=== PATIENT | female | born 1995 | race Caucasian/White ===

== ENCOUNTER 2018-02-03 14:00 | Inpatient (IN) | payer BC ==
[~2018-02-03 14:00] MED LIST: ISOVUE-370 76%-LOCM 1 ML ONE; Iopamidol 370 76% 50 ML VIAL FS ONE
[2018-02-03 14:39] LABS: #Basophils 0.1 thou/uL (0.0-0.2); #Eosinphils 0.2 thou/uL (0.0-0.7); #Lymphocytes 0.6 thou/uL (1.20-3.40); #Monocytes 0.4 thou/uL (0.11-0.59); %Basophils 0.6 % (0.0-1.0); %Eosinophils 1.8 % (0.0-10.0); %Lymphocytes 6.1 % (21.0-51.0); %Neutrophils 87.5 % (42.0-75.0); Hemoglobin 15.3 g/dL (12.0-16.0); Mean Corpuscular HGB CONC 33.7 g/dL (32.0-36.0); Mean Corpuscular Hemoglobin 35.5 pg (27.0-31.0); Mean Platelet Volume 7.4 fL (7.4-10.4); Platelet Count 296 thou/uL (130-400); RBC Distribution Width 13.3 % (11.5-14.5); Red Blood Cell (RBC) Count 4.32 mill/uL (4.20-5.40); White Blood Cell (WBC) Count 10.3 thou/uL (4.8-10.8)
[2018-02-03 14:44] LABS: BHCG - Serum Negative (NEGATIVE); Pregs Control Background? CLEAR/WHITE (CLR/WHITE); Pregs Control Bar Appear? YES (CONTROL BAR)
[2018-02-03 14:47] LABS: PTT 26.5 SEC (22.9-36.1); Prothrombin Time 12.9 SEC (12.0-14.7)
[2018-02-03 15:01] LABS: ALT (SGPT) 10 U/L (8-55); AST (SGOT) 15 U/L (5-34); Albumin 4.2 g/dL (3.5-5.0); Alkaline Phosphatase 70 U/L (40-150); Anion Gap 13 mmol/L (10-20); BUN (Urea Nitrogen) 10 mg/dL (7.0-18.7); Bilirubin, Total 0.5 mg/dL (0.2-1.2); CK (CPK) 41 U/L (29-168); Calc. Creatinine Clearance 0 mL/min (70-130); Carbon Dioxide 26 mmol/L (22-29); Chloride 102 mmol/L (98-107); Estimated GFR-MDRD 72; Globulin 3.2 g/dL (2.4-3.5); Glucose 162 mg/dL (70-105); Lipase 132 U/L (8-78); Potassium 4.1 mmol/L (3.5-5.1); Protein, Total 7.4 g/dL (6.0-8.3); Sodium 137 mmol/L (136-145)
--- NOTE | 2018-02-03 15:12 | RAD ---
AP VIEW OF CHEST: Date: 02/03/18 INDICATION: History of rectal bleeding for 3 weeks. COMPARISON: None. FINDINGS: Lungs are clear. Cardiomediastinal silhouette is slightly accentuated by exam technique and is felt t o be within normal limits. No acute osseous abnormality is evident. IMPRESSION: No definite acute cardiopulmonary abnormality. POS: [facility]
[2018-02-03 15:54] LABS: Bilirubin Negative (Negative); Blood, Urine Negative (Negative); Clarity CLOUDY (Clear); Glucose, Urine (Dipstick) Negative (Negative); Leukocyte Moderate (Negative); Nitrite Negative (Negative); Protein, Urine (Dipstick) Negative (Neg-Trace); Specific Gravity, Urine 1.028 (1.002-1.036); Urobilinogen 0.2 mg/dL (0.2-1.0)
[2018-02-03 15:56] LABS: Bacteria/HPF 2+ HPF (None Seen); Hyaline Casts/LPF 7-10 HYALINE CAST LPF (0-3 Hyaline); Pathc Cast-AUWi Flag 0.72 (0-2.49); WBC/HPF 21-50 HPF (0-3)
[2018-02-03 16:02] LABS: RBC/HPF None Seen HPF (0-3)
[2018-02-03] MEDS ORDERED: metroNIDAZOLE 500 MG/100 ML BAG ONE (16:48)
--- NOTE | 2018-02-03 16:56 | PDOC.FPRHP ---
- History of Present Illness Chief Complaint: Abdominal pain, bloody diarrhea History of Present Illness: Ms. Arteaga reports 3 week history of blood per rectum. She has had bloody diarrhea and mucus >10 per day that has been gradually worsening. She reports decreased appetite, weakness, lower abdominal pain, cramping. She has felt lightheaded, like she would pass out, ears ringing. No fainting or LOC. She saw Dr. Barcenas, got steroids, but symptoms have She has a history of UC, diagnosed at age 18. Had colonoscopy at that time. Has another colonoscopy scheduled for 02/14. Dr. Barcenas is her GI doctor. She has not been hospitalized for a flair since she was 20 yrs old. Reports depression, off abillify for 3 weeks. Denies suicidal or homocidal ideation. ED Course: CT ab/pelvis, Flagyl, cultures - Allergies/Adverse Reactions Allergies Allergy/AdvReac Type Severity Reaction Status Date / Time No Known Allergies Allergy Verified 02/03/18 17:46 - Home Medications Medication Instructions Recorded Confirmed Type DULoxetine [Cymbalta] 30 mg PO 1700 02/03/18 02/03/18 History Dicyclomine [Bentyl] 10 mg PO QID PRN 02/03/18 02/03/18 History Mesalamine 1.2 gm PO HS 02/03/18 02/03/18 History Norgestimate-Ethinyl Estradiol 1 each PO HS 02/03/18 02/03/18 History [Trinessa Tablet] azaTHIOprine 100 mg PO HS 02/03/18 02/03/18 History valACYclovir HCl [Valacyclovir] 1,000 mg PO HS 02/03/18 02/03/18 History - History PMHx: UC, depression PSHx: None FHx: Mother-UC, fibromyalgia, ankylosing spondylitis. Aunt-ovarian CA. Dad-T1DM Social: Student at [employer]. Lives with boyfriend. Denies tobacco,alcohol, or drug use - Review of Systems General: reports: weight/appetite/sleep changes (5 lb weight loss, decreased appetite), fatigue. denies: fever/chills, night sweats Eyes: reports: vision changes (intermittent blurry vission). denies: eye pain ENT: reports: other (intermittent ringing in ears). denies: nasal congestion, rhinorrhea Respiratory: denies: cough, shortness of breath Cardiovascular: reports: palpitation (when feeling lightheaded). denies: chest pain Gastrointestinal: reports: diarrhea, abdominal pain (diffuse lower abdomen). denies: nausea, vomiting Genitourinary: denies: dysuria, polyuria Skin: denies: rashes, lesions Musculoskeletal: denies: tenderness, stiffness Neurological: denies: numbness, syncope Psychological: reports: depression. denies: anxiety - Vital signs BP: 102/65 HR: 69 RR: 15 Tmax: 97.7 Pox: 100% on RA Wt: 60 - Physical Exam Constitutional: NAD, awake, alert and oriented HEENT: normocephalic and atraumatic, EOMI, grossly normal vision, TM's clear and intact, grossly normal hearing, oropharynx clear Heart: RRR, normal S1/S2 Lungs: CTAB, no respiratory distress, no rales/rhonchi, no wheezing Abdomen: soft (bilateral lower quadrants TTP), bowel sounds present Neurological: no focal deficit Heme/Lymphatic: no unusual bruising or bleeding, no petechia Psychiatric: normal mood and affect, good judgment and insight FMR H&P: Results - Labs Result Diagrams: 02/03/18 14:27 02/03/18 14:27 Lab results: WBC 10.3 thou/uL (4.8-10.8) 02/03/18 14:27 Hgb 15.3 g/dL (12.0-16.0) 02/03/18 14:27 Hct 45.4 % (36.0-47.0) 02/03/18 14:27 MCV 105.0 fL (78.0-98.0) H 02/03/18 14:27 Plt Count 296 thou/uL (130-400) 02/03/18 14:27 Neutrophils % 87.5 % (42.0-75.0) H 02/03/18 14:27 Sodium 137 mmol/L (136-145) 02/03/18 14:27 Potassium 4.1 mmol/L (3.5-5.1) 02/03/18 14:27 Chloride 102 mmol/L (98-107) 02/03/18 14:27 Carbon Dioxide 26 mmol/L (22-29) 02/03/18 14:27 BUN 10 mg/dL (7.0-18.7) 02/03/18 14:27 Creatinine 0.96 mg/dL (0.6-1.1) 02/03/18 14:27 Glucose 162 mg/dL (70-105) H 02/03/18 14:27 Lactic Acid 1.2 mmol/L (0.5-2.2) 02/03/18 14:27 Calcium 10.0 mg/dL (7.8-10.44) 02/03/18 14:27 Total Bilirubin 0.5 mg/dL (0.2-1.2) 02/03/18 14:27 AST 15 U/L (5-34) 02/03/18 14:27 ALT 10 U/L (8-55) 02/03/18 14:27 Alkaline Phosphatase 70 U/L (40-150) 02/03/18 14:27 Creatine Kinase 41 U/L (29-168) 02/03/18 14:27 B-Natriuretic Peptide Less than 10.0 pg/mL (0-100) 02/03/18 14:27 Serum Total Protein 7.4 g/dL (6.0-8.3) 02/03/18 14:27 Albumin 4.2 g/dL (3.5-5.0) 02/03/18 14:27 Lipase 132 U/L (8-78) H 02/03/18 14:27 Urine Ketones Trace mg/dL (Negative) H 02/03/18 15:26 Urine Blood Negative (Negative) 02/03/18 15:26 Urine Nitrite Negative (Negative) 02/03/18 15:26 Ur Leukocyte Esterase Moderate (Negative) H 02/03/18 15:26 Urine RBC None Seen HPF (0-3) 02/03/18 15:26 Urine WBC 21-50 HPF (0-3) H 02/03/18 15:26 Ur Squamous Epith Cells 4-6 HPF (0-3) H 02/03/18 15:26 Urine Bacteria 2+ HPF (None Seen) H 02/03/18 15:26 FMR H&P: A/P - Problem List (1) Ulcerative colitis Current Visit: Yes Status: Acute Code(s): K51.90 - ULCERATIVE COLITIS, UNSPECIFIED, WITHOUT COMPLICATIONS (2) Pre-syncope Current Visit: Yes Status: Acute (3) Depression Current Visit: Yes Status: Acute Code(s): F32.9 - MAJOR DEPRESSIVE DISORDER , SINGLE EPISODE, UNSPECIFIED - Plan Acute UC flare -considering stable vitals, normal white count there is no current concern for infection -Prednisone 40 mg daily -pending ESR, CRP -continue home medications -soft diet, advance as patient tolerates -IV fluids NS @ 100 -pending CT ab/pelvis -Appreciate GI recs, Dr. Peres Pre-syncope, likely vasovagal -considering normal labs and vitals, vasovagal more likely than orthostatic/ hypovolemic cause Depression -continue home meds Ppx: SCDs, no GI ppx indicated FMR H&P: Upper Level - Pertinent history Patient is a 23 year old female who presents to the ED with 2-3 week history of bright red blood per rectum and increased frequency of bowel movements. Pt reports at least 10 small volume bowel movements per day and reports blood and mucus. She was started on Uceris one week ago by her GI's office ([facility]), but states that her symptoms did not improvem. Her regimen for UC includes Lialda, Azathioprine, and Uceris. She reports chills, weakness, fatigue, abdominal pain/ cramping, tenesmus, and symptoms of near syncope that occur when having a bowel movement. She was diagnosed with UC at the age of 18 and was hospitalized at that time due to severe rectal bleeding. Her last colonoscopy was around that time. She has been hospitalized multiple times for UC flares. - Pertinent findings Hgb: 15.3, Hct: 45.4 WBC: 10.3 Plt: 296. MCV: 105 FOBT: negative Stool studies (01/27) fecal lactoferrin - elevated C diff antigen/toxin - negative. PTT: 26.5 PT: 12.9 INR: 1.0 - Plan Date/Time: 02/03/18 1654 ISue, have evaluated this patient and agree with findings/plan as outlined by management retail intern resident. Pertinent changes/additions are listed here. 1. Acute Ulcerative Colitis Exacerbation - pt's symptoms unlikely related to infectious etiology. - pt's case discussed with Dr. Peres who recommends admission to medical observation. - will continue pt's home medications - Will add home PO steroids - IV fluids. - GI recs. 2. Depression - continue Cymbalta Proph: SCDs GI proph: omeprazole Attending Addendum - Attending Addendum Date/Time: 02/03/18 740 I personally evaluated the patient and discussed the management with Dr. Barkley and Dr. Quijano I agree with the History, Examination, Assessment and Plan documented above with any addition or exceptions noted below. 23 yo female with UC presents for acute flare. Last flare at age 20. Has been for the most part controlled on current regiment. Has routine follow up with GI Dr. Barcenas. Episode of presyncope earlier today. Has since resolved. No significant findings on exam. Will continue IVF hydration and monitor cardiac function on tele. Will start oral steroid taper. GI to follow. Will advance diet as tolerated. Possible home tomorrow if doing well. Larry
[2018-02-03] MEDS ORDERED: metroNIDAZOLE 500 MG in Premix Bag 1 BAG IVPB SCH (17:00)
[2018-02-03] MEDS ORDERED: predniSONE 20 MG TAB PO SCH (17:15)
--- NOTE | 2018-02-03 17:35 | CT ---
CT OF ABDOMEN AND PELVIS: Date: 02-03-18 Comparison: None. History: Three week history of rectal bleeding. Pain. Technique: Serial axial CT imaging at 5 mm intervals from lung bases through pubic symphysis with IV and oral contrast. Coronal reformatted imaging obtained. FINDINGS: The visualized lung bases are unremarkable. No free intraperitoneal air noted. There is a tiny hypodensity within the superior anterior aspect of the left lobe of the liver on imag e 10 measuring 6-7 mm, too small to characterize. The gallbladder, spleen, pancreas, adrenal glands, and kidneys appear grossly unremarkable. There is colonic wall thickening extending from the level of the rectum through the level of the sigm oid colon at the junction of the descending colon with mild pericolonic fat stranding, evidence of no nspecific colitis, consistent with the patient's provided history of ulcerative colitis. There is a small area of hypodensity in the adnexa on the left which may represent a subcentimeter ov stan cyst/dominant follicle. No CT evidence for bowel obstruction or abscess. The vascular structures of the abdomen/pelvis appear patent. No lymphadenopathy is seen within the ab domen or pelvis. Osseous structures demonstrate no worrisome lytic or blastic lesion. IMPRESSION: 1. There is wall thickening and pericolonic fat stranding involving the colon from the level of the j unction of the descending colon and sigmoid colon through the level of the rectum, evidence of nonspe cific colitis. No evidence for bowel obstruction, free intraperitoneal air, or abscess. POS: [facility]
[2018-02-03 18:06] VITALS: BMI 20.7
[2018-02-03] MEDS: Sodium Chloride 0.9% 1,000 ML IV SCH (18:42)
[2018-02-03] MEDS: Dicyclomine 10 MG CAP PO PRN (18:43)
[2018-02-03] MEDS: azaTHIOprine 50 MG TAB PO SCH (20:36)
[2018-02-03] MEDS: valACYclovir 500 MG TAB PO SCH (20:37)
[2018-02-03] MEDS ORDERED: Mesalamine DR 400 mg Capsule PO SCH (21:00)
--- NOTE | 2018-02-04 02:44 | CON ---
DATE OF CONSULTATION: 02/03/2018 REASON FOR CONSULTATION: Ulcerative colitis flare. HISTORY OF PRESENT ILLNESS: Ms. Arteaga is a pleasant 23-year-old her significant other with her in t he room. She was admitted via emergency room. She has got together by our office for worsening diar frances up to 10-20 times per day with mucus and blood and severe lower abdominal cramping. She has not been responding to outpatient trial of Uceris over the weekend. She has been brought in for admissi on. In talking with her, she began flaring about 2 weeks ago. She thinks this may have been around that time she started medicine Abilify for depression. She has been on no recent antibiotics. She h ad no sick contacts. In the office about 2 weeks ago, she was seen and she had labs with normal CBC except for MCV of 107, sed rate of 2, normal comp metabolic profile, CRP less than 0.5. She had stoo l studies at that time were positive for elevated lactoferrin, negative for Clostridium difficile. S he was started on Uceris on the 3rd of this month and was failed for outpatient endoscopies as she wa s having mainly tenesmus and mucus and just a little bit of blood and at that time, her inflammatory markers were elevated. It was thought that maybe some of this was IBS or functional. However, with worsening of symptoms and the patient with some blood in the stool and 20 bowel movements a day, the decision was made to admit her for further evaluation as she was fairly admitted to the outpatient [facility]. PAST MEDICAL HISTORY: 1. Ulcerative colitis diagnosed in 2013 and this seems like it was pancolitis. She has been in [facility] for the past year and a half, she has been seeing Dr. Barcenas with Imuran, some azathioprine 100 m g a day and Lialda 2 pills daily. 2. She has history of genital herpes, for which she takes valacyclovir 1000 mg daily. 3. She takes control pills. 4. Depression, for which she was on Abilify, but now is on Cymbalta. PAST SURGICAL HISTORY: Unknown. ALLERGIES: None known. FAMILY HISTORY: Positive for inflammatory bowel disease with ulcerative colitis ____. REVIEW OF SYSTEMS: Negative for rashes, myalgias, arthralgias. Negative for oral ulcerations. Nega tive for shortness breath, chest pain, dyspnea on exertion, hematuria, frequency, or urgency. PHYSICAL EXAMINATION: VITAL SIGNS: In the emergency room, stable. Temperature 98, pulse 87, blood pressure 120s/70s. GENERAL: She is a well-nourished, well-developed. She is in no distress. She has no oral ulcer. S he has got a piercing in her left lower lip. SKIN: Without rash or lesions. ABDOMEN: Soft with left lower quadrant tenderness. No rebound. Voluntary guarding is present. [place] el sounds are positive. EXTREMITIES: No clubbing, cyanosis or edema. SKIN: Without rash or lesions. LABORATORY DATA: Today electrolytes are normal with BUN and creatinine of 10 and 0.96. Liver functi on tests normal. Lipase is 132. test is negative. B12 and folate, recently 404 and 11. BNP was less than 10. C-reactive protein is 4.45, it was less than 0.5 on 01/21/2018. On 01/21/2018 , Imuran levels were in therapeutic range, on low normal side. Urinalysis, moderate leukocyte estera se, 21-50 white blood cells, 4-6 squamous, this is likely contaminant. Hematology, ESR is 11 up from 2 on the , white count is 10.6, hemoglobin 15.3, platelet count 296. ASSESSMENT: Ulcerative colitis flare. RECOMMENDATIONS: 1. Solu-Medrol 100 mg IV q.8 hours 2. Continue home medications. We will increase mesalamine to 4.8 grams. We will check stool again for C. diff, routine cultures ____ recently. If she does not improve, we need to recheck of her CMV.
[2018-02-04] MEDS: Dicyclomine 10 MG CAP PO PRN ×3 (04:43→19:14)
[2018-02-04] MEDS: Sodium Chloride 0.9% 1,000 ML IV SCH (04:43)
[2018-02-04 05:08] LABS: #Lymphocytes 0.3 thou/uL (1.20-3.40); #Monocytes 0.4 thou/uL (0.11-0.59); #Neutrophils 10.5 thou/uL (1.40-6.50); %Basophils 0.3 % (0.0-1.0); %Eosinophils 0.1 % (0.0-10.0); %Lymphocytes 2.3 % (21.0-51.0); %Monocytes 3.2 % (0.0-10.0); %Neutrophils 94.1 % (42.0-75.0); Hemoglobin 13.3 g/dL (12.0-16.0); Mean Corpuscular HGB CONC 32.5 g/dL (32.0-36.0); Mean Corpuscular Hemoglobin 34.2 pg (27.0-31.0); Mean Platelet Volume 7.6 fL (7.4-10.4); Platelet Count 292 thou/uL (130-400); RBC Distribution Width 13.2 % (11.5-14.5); Red Blood Cell (RBC) Count 3.89 mill/uL (4.20-5.40); White Blood Cell (WBC) Count 11.1 thou/uL (4.8-10.8)
--- NOTE | 2018-02-04 05:13 | PDOC.FM ---
- Subjective Subjective: Ms. Arteaga says she feels maybe a little bit better this morning. 3-4 BMs overnight. Reports straining while using the bathroom. Tolerated some soft food yesterday evening. Reports pain is still 6/10 and Bentyl is only helping a little. - Objective MAR Reviewed: Yes Vital Signs & Weight: Vital Signs (12 hours) Temp Pulse Resp BP BP Pulse Ox 02/04/18 04:43 74 18 114/54 L 02/03/18 23:05 98.4 F 75 16 106/56 L 97 02/03/18 19:27 98.3 F 80 15 111/64 96 02/03/18 17:37 97.7 F 69 15 102/65 100 Weight Weight 60.101 kg I&O: 02/02/18 02/03/18 02/04/18 06:59 06:59 06:59 Intake Total 1000 Balance 1000 Result Diagrams: 02/04/18 04:10 02/04/18 04:10 <Marah oMncada - Last Filed: 02/04/18 08:22> - Objective Vital Signs & Weight: Vital Signs (12 hours) Temp Pulse Resp BP BP Pulse Ox 02/04/18 11:13 98.5 F 64 15 104/64 98 02/04/18 08:00 98.4 F 56 L 14 02/04/18 07:22 98.4 F 56 L 14 106/59 L 97 02/04/18 04:43 74 18 114/54 L Weight Weight 60.101 kg I&O: 02/03/18 02/04/18 02/05/18 06:59 06:59 06:59 Intake Total 1000 120 Balance 1000 120 Result Diagrams: 02/04/18 04:10 02/04/18 04:10 <Mandeep Smiley - Last Filed: 02/04/18 12:06> Phys Exam - Physical Examination Constitutional: NAD HEENT: moist MMs Respiratory: no wheezing, no rales, no rhonchi, clear to auscultation bilateral Cardiovascular: RRR, no significant murmur Gastrointestinal: soft, no distention (bilateral lower abdomen TTP), positive bowel sounds Musculoskeletal: no edema, pulses present Neurological: non-focal, moves all 4 limbs Psychiatric: normal affect Skin: no rash, cap refill <2 seconds <Marah Moncada - Last Filed: 02/04/18 08:22> Dx/Plan (1) Ulcerative colitis Code(s): K51.90 - ULCERATIVE COLITIS, UNSPECIFIED, WITHOUT COMPLICATIONS Status: Acute (2) Pre-syncope Status: Acute (3) Depression Code(s): F32.9 - MAJOR DEPRESSIVE DISORDER, SINGLE EPISODE, UNSPECIFIED Status : Acute (4) Genital herpes Code(s): A60.00 - HERPESVIRAL INFECTION OF UROGENITAL SYSTEM, UNSPECIFIED Status: Chronic - Plan Plan: Acute UC flare -considering stable vitals, normal white count there is no current concern for infection - CT ab/pelvis showed colonic wall thickening, pericolonic fat stranding, nonspecific colitis. -ESR and CRP elevated compared to lab 01/22/18 -neg FOBT, neg O&P, campy, shiga screen -continue home azathioprine, lialda -soft diet, advance as patient tolerates -IV fluids NS @ 100 -Appreciate GI recs, Dr. Peres: increase mesalamine to 4.8mg -solumedrol 100IV q8h, -c diff, stool culture and cyclospora smear pending Pre-syncope, likely vasovagal -considering normal labs and vitals, vasovagal more likely than orthostatic/ hypovolemic cause Genital Herpes -continue home valacyclovir Depression -continue home meds Ppx: SCDs, no GI ppx indicated Disposition: Stable, awaiting recommendations from GI. Possible discharge later today if continued improvement <Marah Moncada - Last Filed: 02/04/18 08:22> Attending Addendum - Attending Addendum Date/Time: 02/04/18 1205 I personally evaluated the patient and discussed the management with Dr. Moncada. I agree with the History, Examination, Assessment and Plan documented above with any addition or exceptions noted below. Patient here for UC flare. Continues to have bowel movements and tenesmus. Working on increasing her Lialda dose but pharmacy does not have proper formulation so are working to get home meds approved for use here. Continue IV steroids per GI recs. <Mandeep Smiley - Last Filed: 02/04/18 12:06>
[2018-02-04 05:32] LABS: Anion Gap 12 mmol/L (10-20); BUN (Urea Nitrogen) 7 mg/dL (7.0-18.7); Calc. Creatinine Clearance 109 mL/min (70-130); Carbon Dioxide 23 mmol/L (22-29); Chloride 108 mmol/L (98-107); Estimated GFR-MDRD Greater than 90; Glucose 165 mg/dL (70-105); Potassium 4.3 mmol/L (3.5-5.1); Sodium 139 mmol/L (136-145)
[2018-02-04] MEDS ORDERED: predniSONE 20 MG TAB PO SCH (08:00)
[2018-02-04] MEDS ORDERED: azaTHIOprine 50 MG TAB PO SCH (09:00)
[2018-02-04] MEDS ORDERED: valACYclovir 500 MG TAB PO SCH (09:00)
[2018-02-04] MEDS ORDERED: Mesalamine DR 400 mg Capsule PO SCH (09:00)
[2018-02-04] MEDS ORDERED: DULoxetine 30 MG CAP PO SCH (09:00)
[2018-02-04] MEDS: methylPREDNISolone Sod Succ/PF 125 MG/2 ML VIAL IVP SCH ×2 (10:39→17:45)
[2018-02-04] MEDS ORDERED: Lactated Ringer's 1,000 ML IV SCH (12:00)
[2018-02-04] MEDS: NORGESTIMATE ETHINYL ESTRADIOL PO SCH ×2 (13:37→15:16)
[2018-02-04] MEDS: DULoxetine 30 MG CAP PO SCH (17:41)
[2018-02-04] MEDS: azaTHIOprine 50 MG TAB PO SCH (19:14)
[2018-02-04] MEDS: valACYclovir 500 MG TAB PO SCH (19:14)
[2018-02-04] MEDS ORDERED: Acetaminophen 325 MG TAB PO PRN (22:58)
[2018-02-05] MEDS: methylPREDNISolone Sod Succ/PF 125 MG/2 ML VIAL IVP SCH ×3 (01:39→17:24)
--- NOTE | 2018-02-05 05:46 | PRG ---
DATE OF SERVICE: 02/04/2018 SUBJECTIVE: Ms. Arteaga has had decreased in bowel movements, noted about 7 to 8 a day. She is still seeing some blood and having some tenesmus. PHYSICAL EXAMINATION: VITAL SIGNS: Temperature is 98.6, pulse 61, blood pressure 119/69. HEENT: Oropharynx without lesions. NECK: There is no thrush. LUNGS: Clear. HEART: Regular rate and rhythm without clicks or murmurs. ABDOMEN: ditch tender in left lower quadrant, but there is less voluntary guarding and no rebound. LABORATORY STUDIES: White count is 11.1, hemoglobin is 13.3, platelet count 292. Sodium 139, potass ium 4.3, BUN and creatinine are 7 and 0.76. CRP was 454 yesterday. Stool microbiology negative for C. difficile, negative for rapid ova and parasite screen. Cyclosporine has been ordered and is pendi ng. Stool culture showed no Gram-negative and normal enteric payton. RECOMMENDATIONS: 1. Probiotics. 2. Continue IV steroids. 3. I think the patient will need to be will probably need another 24-48 hours of IV steroids. Her typical hospital stay, she notes is anywhere between 5 and 10 days.
--- NOTE | 2018-02-05 05:57 | PDOC.FM ---
- Subjective Subjective: Patient used the bathroom 3-4x overnight. Diffuse lower abdominal pain continues. Tolerating PO intake well but says she is not drinking as much as she knows she should. She reports pain and burning with urination. Patient has concern for UTI as her "bladder feels sore". Has had UTIs in past, last one 1 yr ago. Also has history of yeast infections and reports itching with urination as well. - Objective MAR Reviewed: Yes Vital Signs & Weight: Vital Signs (12 hours) Temp Pulse Resp BP Pulse Ox 02/05/18 05:00 97.9 F 64 16 113/57 L 97 02/04/18 23:45 98.3 F 66 18 121/67 97 02/04/18 20:00 98.6 F 61 16 02/04/18 19:11 98.6 F 61 16 119/68 98 Weight Weight 60.101 kg I&O: 02/03/18 02/04/18 02/05/18 06:59 06:59 06:59 Intake Total 1000 2195 Balance 1000 2195 Result Diagrams: 02/04/18 04:10 02/04/18 04:10 <Marah Moncada - Last Filed: 02/05/18 09:26> - Objective Vital Signs & Weight: Vital Signs (12 hours) Temp Pulse Resp BP Pulse Ox 02/05/18 11:28 97.6 F 55 L 20 99/56 L 02/05/18 07:47 97.9 F 57 L 20 113/59 L 02/05/18 07:40 97.9 F 57 L 20 02/05/18 05:00 97.9 F 64 16 113/57 L 97 Weight Weight 60.101 kg I&O: 02/04/18 02/05/18 02/06/18 06:59 06:59 06:59 Intake Total 1000 2195 Balance 1000 2195 Result Diagrams: 02/04/18 04:10 02/04/18 04:10 <Mandeep Smiley - Last Filed: 02/05/18 13:32> Phys Exam - Physical Examination Constitutional: NAD Respiratory: clear to auscultation bilateral Cardiovascular: RRR, no significant murmur Gastrointestinal: soft, positive bowel sounds bilateral lower quadrants TTP Musculoskeletal: no edema, pulses present Neurological: non-focal, moves all 4 limbs Psychiatric: normal affect, A&O x 3 <Marah Moncada - Last Filed: 02/05/18 09:26> Dx/Plan (1) Ulcerative colitis Code(s): K51.90 - ULCERATIVE COLITIS, UNSPECIFIED, WITHOUT COMPLICATIONS Status: Acute (2) Pre-syncope Status: Acute (3) Depression Code(s): F32.9 - MAJOR DEPRESSIVE DISORDER, SINGLE EPISODE, UNSPECIFIED Status : Acute (4) Genital herpes Code(s): A60.00 - HERPESVIRAL INFECTION OF UROGENITAL SYSTEM, UNSPECIFIED Status: Chronic - Plan Plan: Acute UC flare - CT ab/pelvis showed colonic wall thickening, pericolonic fat stranding, nonspecific colitis. -ESR and CRP elevated compared to lab 01/22/18 -neg FOBT, neg O&P, campy, shiga screen. neg stool culture. neg c diff. -continue home azathioprine, lialda -soft diet, advance as patient tolerates -Appreciate GI recs, Dr. Peres: recommends probiotics, continuing IV steroids. -solumedrol 100IV q8h -cyclospora smear pending Pre-syncope, likely vasovagal -considering normal labs and vitals, vasovagal more likely than orthostatic/ hypovolemic cause Genital Herpes -continue home valacyclovir Depression -continue home meds Ppx: SCDs, no GI ppx indicated Disposition: Stable, discharge 24-48 hrs pending GI recommendations. <Marah Moncada - Last Filed: 02/05/18 09:26> Attending Addendum - Attending Addendum Date/Time: 02/05/18 1331 I personally evaluated the patient and discussed the management with Dr. Moncada. I agree with the History, Examination, Assessment and Plan documented above with any addition or exceptions noted below. Patient reports feeling the same. GI has recommended a few more days of IV steroids. She is having what sounds like vaginitis for which we will work up and treat as necessary. Continue current mgmt. <Mandeep Smiley - Last Filed: 02/05/18 13:32>
[2018-02-05] MEDS: Saccharomyces boulardii 250 MG CAP PO SCH (08:42)
[2018-02-05] MEDS: NORGESTIMATE ETHINYL ESTRADIOL PO SCH (08:43)
[2018-02-05] MEDS: MESALAMINE 1.2 GM PO SCH (08:44)
[2018-02-05] MEDS ORDERED: MESALAMINE 1.2 GM PO SCH (09:00)
[2018-02-05] MEDS: DULoxetine 30 MG CAP PO SCH (17:24)
[2018-02-05] MEDS ORDERED: Fluconazole 100 MG TAB PO SCH (19:00)
[2018-02-05] MEDS: azaTHIOprine 50 MG TAB PO SCH (21:47)
[2018-02-05] MEDS: valACYclovir 500 MG TAB PO SCH (21:49)
[2018-02-06] MEDS ORDERED: Sodium Chloride 0.9% 10 ML ONE (01:13)
[2018-02-06] MEDS: methylPREDNISolone Sod Succ/PF 125 MG/2 ML VIAL IVP SCH ×3 (01:28→17:51)
--- NOTE | 2018-02-06 03:04 | PRG ---
DATE OF SERVICE: 02/05/2018 SUBJECTIVE: Ms. Arteaga states she has felt better in terms of her bowels. She is having less bleedi ng, about 6 bowel movements today, which is down from 8-10 yesterday. She is having less cramping. She has had some dysuria and vaginal burning. She denies any dysphagia or odynophagia, but does note she had thrush when she had severe Clostridium difficile in one previous admission with her ulcerati ve colitis. OBJECTIVE: VITAL SIGNS: Temperature is 98, pulse 58, blood pressure 107/61. ABDOMEN: Soft, nontender. LUNGS: Clear. HEART: Regular rate and rhythm without clicks or murmurs. ABDOMEN: stave machine tender mildly in left lower quadrant. LABORATORY DATA: No labs today. ASSESSMENT: 1. Ulcerative colitis, [id number] flare, on IV steroids now. 2. Symptoms suggested urinary tract infection versus Mariely vaginitis. She denies any discharge. RECOMMENDATIONS: 1. Continue IV steroids. 2. Continue low-residue diet. 3. Check a UA and culture. 4. Give her 1 dose of Diflucan empirically.
--- NOTE | 2018-02-06 05:19 | PDOC.FM ---
- Subjective Subjective: Ms. Arteaga feels she is slowly starting to improve. Went to bathroom 3x last night. Diffuse lower abdominal pain is improving. Has not urinated since received diflucan yesterday. Says she is unsure if dysuria, vaginal irritation is persistent today. - Objective MAR Reviewed: Yes Vital Signs & Weight: Vital Signs (12 hours) Temp Pulse Resp BP Pulse Ox 02/05/18 20:15 98.6 F 72 18 123/68 99 02/05/18 17:43 98.3 F 58 L 20 107/61 Weight Weight 60.101 kg I&O: 02/04/18 02/05/18 02/06/18 06:59 06:59 06:59 Intake Total 1000 2195 1000 Balance 1000 2195 1000 Result Diagrams: 02/04/18 04:10 02/04/18 04:10 <Marah Moncada - Last Filed: 02/06/18 08:02> - Objective Vital Signs & Weight: Vital Signs (12 hours) Temp Pulse Resp BP Pulse Ox 02/06/18 08:37 98.8 F 49 L 18 102/57 L 98 02/06/18 08:15 98.6 F 72 20 Weight Weight 60.101 kg I&O: 02/05/18 02/06/18 02/07/18 06:59 06:59 06:59 Intake Total 2195 1000 Balance 2195 1000 Result Diagrams: 02/04/18 04:10 02/04/18 04:10 <Mandeep Smiley - Last Filed: 02/06/18 11:49> Phys Exam - Physical Examination Constitutional: NAD Respiratory: clear to auscultation bilateral Cardiovascular: RRR, no significant murmur Gastrointestinal: soft, positive bowel sounds bilateral lower quadrants mildly TTP Musculoskeletal: no edema Neurological: non-focal Psychiatric: normal affect <Marah Moncada - Last Filed: 02/06/18 08:02> Dx/Plan (1) Ulcerative colitis Code(s): K51.90 - ULCERATIVE COLITIS, UNSPECIFIED, WITHOUT COMPLICATIONS Status: Acute (2) Pre-syncope Status: Acute (3) Depression Code(s): F32.9 - MAJOR DEPRESSIVE DISORDER, SINGLE EPISODE, UNSPECIFIED Status : Acute (4) Genital herpes Code(s): A60.00 - HERPESVIRAL INFECTION OF UROGENITAL SYSTEM, UNSPECIFIED Status: Chronic - Plan Plan: Acute UC flare - CT ab/pelvis showed colonic wall thickening, pericolonic fat stranding, nonspecific colitis. -ESR and CRP elevated compared to lab 01/22/18 -neg FOBT, neg O&P, campy, shiga screen. neg stool culture. neg c diff. -continue home azathioprine, lialda -soft diet, advance as patient tolerates -Appreciate GI recs, Dr. Peres: recommends continuing IV steroids. -solumedrol 100IV q8h -cyclospora smear pending Dysuria/vaginal irritation -Unsure of etiology considering Ucx on admission negative for growth and negative VP3. Ddx includes UTI, yeast infection considering steroid exposure. -VP3 negative -pending Ucx -given 1 dose diflucan. Scheduled diflucan daily. Pre-syncope, likely vasovagal -considering normal labs and vitals, vasovagal more likely than orthostatic/ hypovolemic cause Genital Herpes -continue home valacyclovir Depression -continue home meds <Marah Moncada - Last Filed: 02/06/18 08:02> Attending Addendum - Attending Addendum Date/Time: 02/06/18 [id number] I personally evaluated the patient and discussed the management with Dr. Moncada. I agree with the History, Examination, Assessment and Plan documented above with any addition or exceptions noted below. Patient reports some improvement today. Will continue IV steroids for her UC flare per GI recs. VP3 negative, but GI treating for possible thrush. Anticipate hopeful discharge in next 1-2 days if progressing well. <Mandeep Smiley - Last Filed: 02/06/18 11:49>
[2018-02-06] MEDS ORDERED: Fluconazole 100 MG TAB PO SCH (09:00)
[2018-02-06] MEDS: Saccharomyces boulardii 250 MG CAP PO SCH (10:01)
[2018-02-06] MEDS: NORGESTIMATE ETHINYL ESTRADIOL PO SCH (10:01)
[2018-02-06] MEDS: MESALAMINE 1.2 GM PO SCH (10:03)
[2018-02-06 15:21] LABS: Bilirubin Negative (Negative); Blood, Urine Negative (Negative); Clarity CLEAR (Clear); Glucose, Urine (Dipstick) Negative (Negative); Leukocyte Negative (Negative); Nitrite Negative (Negative); Protein, Urine (Dipstick) Trace mg/dL (Neg-Trace); Specific Gravity, Urine 1.035 (1.002-1.036); Urobilinogen 0.2 mg/dL (0.2-1.0)
[2018-02-06 15:24] LABS: Pathc Cast-AUWi Flag 1.16 (0-2.49); RBC/HPF 0-3 HPF (0-3)
[2018-02-06 15:41] LABS: Hyaline Casts/LPF 0-3 HYALINE CAST LPF (0-3 Hyaline)
[2018-02-06 15:42] LABS: Bacteria/HPF 1+ HPF (None Seen)
[2018-02-06] MEDS: DULoxetine 30 MG CAP PO SCH (17:51)
[2018-02-06] MEDS: valACYclovir 500 MG TAB PO SCH (21:36)
[2018-02-06] MEDS: azaTHIOprine 50 MG TAB PO SCH (21:40)
[2018-02-06] MEDS: Mesalamine DR 400 mg Capsule PO SCH (21:45)
[2018-02-07] MEDS ORDERED: Sterile Water 10 ML ONE (01:32)
--- NOTE | 2018-02-07 05:31 | PRG ---
DATE OF SERVICE: 02/06/2018 SUBJECTIVE: Ms. Arteaga states she is having about 5-7 stools per day. There is less blood, it is a little more formed, she is still having some cramps. She is taking some Bentyl, she has from h ome. MEDICATIONS: She is taking her Trinessa from home, Tylenol, Imuran 100 mg daily, dicyclomine 10 mg q .i.d. p.r.n., Cymbalta 30 mg daily, mesalamine 1.2 grams daily, Solu-Medrol, Florastor, Valtrex, meth ylprednisone has increased to 100 IV q.8 hours. OBJECTIVE: VITAL SIGNS: By residence temperature is 99, pulse 59, blood pressure 107/62. ABDOMEN: Soft, nontender. There is no rebound. There is no guarding. LABORATORY STUDIES: None. MICROBIOLOGY: Urine showed 4-6 white blood cells, squames, and 1+ bacteria. ASSESSMENT: Ulcerative colitis, I would recommend dropping the Solu-Medrol down to most 40 IV q.8 __ ___ she is going to get Mariely from it. There are no studies to indicate that massive doses of Solu -Medrol improve ulcerative colitis any faster than 20-40 mg IV q.8 hours. PLAN: 1. I stopped the Diflucan. She had 2 doses. She does not feel like she has a yeast infection anymo re, feels like it is improving. 2. We will increase Lialda 4.8 grams a day. 3. I suspect the patient will require 1-2 more days of hospitalization.
[2018-02-07 06:04] LABS: #Lymphocytes 0.6 thou/uL (1.20-3.40); #Monocytes 0.5 thou/uL (0.11-0.59); #Neutrophils 11.5 thou/uL (1.40-6.50); %Eosinophils 0.1 % (0.0-10.0); %Lymphocytes 4.5 % (21.0-51.0); %Monocytes 3.9 % (0.0-10.0); %Neutrophils 91.6 % (42.0-75.0); Hemoglobin 13.4 g/dL (12.0-16.0); Mean Corpuscular HGB CONC 34.1 g/dL (32.0-36.0); Mean Corpuscular Hemoglobin 35.5 pg (27.0-31.0); Mean Platelet Volume 7.6 fL (7.4-10.4); Platelet Count 307 thou/uL (130-400); RBC Distribution Width 12.9 % (11.5-14.5); Red Blood Cell (RBC) Count 3.78 mill/uL (4.20-5.40); White Blood Cell (WBC) Count 12.6 thou/uL (4.8-10.8)
[2018-02-07 06:13] LABS: Anion Gap 11 mmol/L (10-20); BUN (Urea Nitrogen) 14 mg/dL (7.0-18.7); Calc. Creatinine Clearance 126 mL/min (70-130); Calcium 9.2 mg/dL (7.8-10.44); Carbon Dioxide 29 mmol/L (22-29); Chloride 103 mmol/L (98-107); Estimated GFR-MDRD Greater than 90; Glucose 147 mg/dL (70-105); Sodium 139 mmol/L (136-145)
--- NOTE | 2018-02-07 08:02 | PDOC.FM ---
- Subjective Subjective: Patient says she is feeling a bit better, pain is decreased. Went to bathroom 3- 4x last night. Reports blood amount is decreasing. Says dysuria has improved. Doesn't feel like she has yeast infection. - Objective MAR Reviewed: Yes Vital Signs & Weight: Weight Weight 60.101 kg I&O: 02/06/18 02/07/18 02/08/18 06:59 06:59 06:59 Intake Total 1000 Balance 1000 Result Diagrams: 02/07/18 05:43 02/07/18 05:43 <Marah Moncada - Last Filed: 02/07/18 08:07> - Objective Vital Signs & Weight: Vital Signs (12 hours) Temp Pulse Resp BP Pulse Ox 02/07/18 11:58 98.2 F 51 L 18 99/61 02/07/18 08:12 98.7 F 50 L 16 111/73 96 Weight Weight 60.101 kg I&O: 02/06/18 02/07/18 02/08/18 06:59 06:59 06:59 Intake Total 1000 Balance 1000 Result Diagrams: 02/07/18 05:43 02/07/18 05:43 <Mandeep Smiley - Last Filed: 02/07/18 14:13> Phys Exam - Physical Examination Constitutional: NAD Respiratory: clear to auscultation bilateral Cardiovascular: RRR, no significant murmur Gastrointestinal: soft, positive bowel sounds lower quadrants mildly TTP Neurological: non-focal, moves all 4 limbs Psychiatric: normal affect <Marah Moncada - Last Filed: 02/07/18 08:07> Dx/Plan (1) Ulcerative colitis Code(s): K51.90 - ULCERATIVE COLITIS, UNSPECIFIED, WITHOUT COMPLICATIONS Status: Acute (2) Pre-syncope Status: Acute (3) Depression Code(s): F32.9 - MAJOR DEPRESSIVE DISORDER, SINGLE EPISODE, UNSPECIFIED Status : Acute (4) Genital herpes Code(s): A60.00 - HERPESVIRAL INFECTION OF UROGENITAL SYSTEM, UNSPECIFIED Status: Chronic - Plan Plan: Acute UC flare - CT ab/pelvis showed colonic wall thickening, pericolonic fat stranding, nonspecific colitis. -CRP trending down. 4.5->1.2 -neg FOBT, neg O&P, campy, shiga screen. neg stool culture. neg c diff. -continue azathioprine, lialda (dose increased, 4.8g/day), probiotics -soft diet, advance as patient tolerates -Appreciate GI recs, Dr. Peres: recommends continuing IV steroids. Increased Lialda dose. 1-2 more days. -solumedrol, now decreased to 40mg dose -cyclospora smear pending Dysuria/vaginal irritation, resolved -VP3 negative -Ucx no growth @ 12 hrs -given 2 doses diflucan. discontinued. Pre-syncope, resolved -considering normal labs and vitals, vasovagal more likely than orthostatic/ hypovolemic cause Genital Herpes -continue home valacyclovir Depression -continue home meds <Marah Moncada - Last Filed: 02/07/18 08:07> Attending Addendum - Attending Addendum Date/Time: 02/07/18 9366 I personally evaluated the patient and discussed the management with Dr. Moncada. I agree with the History, Examination, Assessment and Plan documented above with any addition or exceptions noted below. Continue IV steroids, though dose has been decreased. We have increased her Lialda dose per GI recs. Feeling somewhat better. Anticipate discharge in next 1 -2 days as tolerating diet well. <Mandeep Smiley - Last Filed: 02/07/18 14:13>
[2018-02-07] MEDS: Mesalamine DR 400 mg Capsule PO SCH ×3 (08:43→21:59)
[2018-02-07] MEDS: NORGESTIMATE ETHINYL ESTRADIOL PO SCH (08:43)
[2018-02-07] MEDS: Saccharomyces boulardii 250 MG CAP PO SCH (08:44)
[2018-02-07] MEDS: MESALAMINE 1.2 GM PO SCH (09:30)
--- NOTE | 2018-02-07 15:52 | PRG ---
DATE OF SERVICE: 02/07/2018 SUBJECTIVE: Ms. Arteaga is feeling a little better today. She has about 4 stools loose today. She i s without complaints. No bleeding or pain. PHYSICAL EXAMINATION: VITAL SIGNS: Temperature is 98.2, pulse 51, blood pressure 99/61. GENERAL: She has been getting up a little bit. ABDOMEN: Soft, nontender. LABORATORY STUDIES: White blood cell count is 12.6, hemoglobin 13.4, platelet count 307. Sodium 139 , potassium 4, BUN and creatinine are 14 and 0.66. C-reactive protein is down from 4.5-1.2, sed rate is 11-4. ASSESSMENT: Ulcerative colitis, improving, but still having 5-10 bowel movements per day. RECOMMENDATIONS: 1. The patient to get out of bed and ambulate. 2. Continue IV steroids 40 mg IV q.8 hours. I think tomorrow she will be able to switch to p.o. and discharged home. If there is relapse, she can stay on the 40 mg IV q.[address] Ace will b e covering for me over the weekend. We will check on him tomorrow. When she is discharged home, she can go on 40 mg of prednisone for a week and then taper by 5 mg every 7 days. There was still a Cyc lospora smear pending on her stool samples, but appears stool studies being negative except for positive lactoferrin, this is of UC flare and has been very typical she knows she is to be in the hospital from 5-7 days with flares.
[2018-02-07] MEDS: DULoxetine 30 MG CAP PO SCH (16:55)
[2018-02-07] MEDS: valACYclovir 500 MG TAB PO SCH (22:00)
[2018-02-07] MEDS: azaTHIOprine 50 MG TAB PO SCH (22:01)
[2018-02-08] MEDS ORDERED: Sterile Water 10 ML ONE (02:18)
[2018-02-08] MEDS ORDERED: Sodium Chloride 0.9% 10 ML ONE (02:25)
--- NOTE | 2018-02-08 05:15 | PDOC.FM ---
- Subjective Subjective: Pt continues to feel better. Reports one bowel movement overnight with decreased abdominal pain. Denies dysuria. Says she feels well enough to go home. - Objective MAR Reviewed: Yes Vital Signs & Weight: Vital Signs (12 hours) Temp Pulse Resp 02/07/18 20:00 98.6 F 55 L 16 Weight Weight 60.101 kg I&O: 02/06/18 02/07/18 02/08/18 06:59 06:59 06:59 Intake Total 1000 Balance 1000 Result Diagrams: 02/07/18 05:43 02/07/18 05:43 Phys Exam - Physical Examination Constitutional: NAD Respiratory: no wheezing, clear to auscultation bilateral Cardiovascular: RRR, no significant murmur Gastrointestinal: soft, non-tender, positive bowel sounds Musculoskeletal: no edema, pulses present Neurological: non-focal Psychiatric: normal affect Dx/Plan (1) Ulcerative colitis Code(s): K51.90 - ULCERATIVE COLITIS, UNSPECIFIED, WITHOUT COMPLICATIONS Status: Acute (2) Pre-syncope Status: Resolved (3) Depression Code(s): F32.9 - MAJOR DEPRESSIVE DISORDER, SINGLE EPISODE, UNSPECIFIED Status : Chronic (4) Genital herpes Code(s): A60.00 - HERPESVIRAL INFECTION OF UROGENITAL SYSTEM, UNSPECIFIED Status: Chronic - Plan Plan: Acute UC flare - CT ab/pelvis showed colonic wall thickening, pericolonic fat stranding, nonspecific colitis. -CRP trending down. 4.5->1.2 -neg FOBT, neg O&P, campy, shiga screen. neg stool culture. neg c diff. -continue azathioprine, lialda (dose increased, 4.8g/day), probiotics -soft diet, advance as patient tolerates -Appreciate GI recs, Dr. Peres: transition to PO steroids. Increased Lialda dose. Possible d/c today -40mg prednisone for a week, then taper by 5mg q7 days -cyclospora smear pending Dysuria/vaginal irritation, resolved -VP3 negative -Ucx no growth @ 12 hrs -given 2 doses diflucan. discontinued. Pre-syncope, resolved -considering normal labs and vitals, vasovagal more likely than orthostatic/ hypovolemic cause Genital Herpes -continue home valacyclovir Depression -continue home meds Disposition: Pt improving and transitioned to oral steroids. Possible discharge today pending GI recs.
[2018-02-08] MEDS: Mesalamine DR 400 mg Capsule PO SCH ×2 (11:42→17:32)
[2018-02-08] MEDS: NORGESTIMATE ETHINYL ESTRADIOL PO SCH (11:44)
[2018-02-08] MEDS: MESALAMINE 1.2 GM PO SCH (11:45)
[2018-02-08] MEDS: Saccharomyces boulardii 250 MG CAP PO SCH (11:46)
[2018-02-08] MEDS ORDERED: predniSONE 20 MG TAB PO SCH (12:30)
[2018-02-08 14:13] VITALS: BP 107/60; TEMP 98.4
[2018-02-08] MEDS: DULoxetine 30 MG CAP PO SCH (17:32)
--- NOTE | 2018-02-09 20:51 | ADD-PRG ---
DATE OF SERVICE: 02/08/2018 Please see note from Dr. Marie for which I agree. The patient was seen, evaluated, examined, and discussed with the residents by bedside. This is an u nfortunate 23-year-old, ulcerative colitis, who was admitted for a severe ulcerative colitis flare-up with rectal bleeding, but is currently stable and on p.o. prednisone and doing well and as long as G I says it is okay. We think we can definitely discharge her on her home medicines plus a prednisone taper per GI's recommendations and then follow up with them.
--- NOTE | 2018-02-10 08:37 | DIS ---
DATE OF ADMISSION: 02/03/2018 DATE OF DISCHARGE: 02/08/2018 RESIDENT: Dr. Marah Moncada. ADMITTING ATTENDING: Dr. Adkins. DISCHARGE ATTENDING: Dr. Ly. CONSULTATIONS: Dr. Peres. PROCEDURES: None. PRIMARY DIAGNOSES: 1. Ulcerative colitis flare. 2. Dysuria. 3. Presyncope. SECONDARY DIAGNOSES: 1. Depression. 2. Genital herpes. DISCHARGE MEDICATIONS: Dicyclomine 10 mg p.o. q.i.d. p.r.n., duloxetine 30 mg p.o., valacyclovir 100 0 mg p.o. at bedtime, azathioprine 100 mg p.o. at bedtime, TriNessa 1 tablet p.o. daily, prednisone D [place] to take 40 mg once daily for 1 week, then decrease by 5 mg each week, Mesalamine 1600 mg p.o. t.i.d. DISCONTINUED MEDICATIONS: Mesalamine 1.2 grams p.o. at bedtime. HISTORY OF PRESENT ILLNESS AND HOSPITAL COURSE: Ms. Arteaga presented with a 3-week history of blood per rectum with increased bloody diarrhea with mucus that had been worsening. She also felt lighthea ded like she would pass out, but no loss of consciousness. The patient was admitted with an acute ul cerative colitis flare and was started on fluids, IV steroids, and her home medications. GI was cons ulted. The patient's dose of Lialda was doubled, probiotics were started, and the patient continued to improve throughout the course of the week. Transition to oral steroids and the patient showed imp rovement and was stable for discharge. Hospital course was uncomplicated. DISPOSITION: Stable. DISCHARGE INSTRUCTIONS: 1. Location: Home. 2. Diet: Regular. 3. Activity: As tolerated. 4. Follow up with Dr. Barcenas.
== END 2018-02-08 19:29 | disposition home or self-care (01) | DRG 387 ==
LOC: ERS 14:00 → OBSVTOIN 15:39 → 2SW 15:39 → 3SE 02-04 23:50
PROVIDERS: ADMIT Student in an Organized Health Care Education/Training Program; ATTEND Student in an Organized Health Care Education/Training Program
DX: K51.90 Ulcerative colitis, unspecified, without complications (principal); R55 Syncope and collapse; F32.9 Major depressive disorder, single episode, unspecified; A60.00 Herpesviral infection of urogenital system, unspecified
CPT/HCPCS: 36415; 71045; 74177; 80048; 80053; 81001; 81003; 81015; 82274; 82550; 83605; 83690; 83735; 83880; 84100; 84703; 85025; 85610; 85652; 85730; 86140; 87015; 87045; 87046; 87077; 87086; 87206; 87324; 87328; 87329; 87449; 87480; 87510; 87660; 87899; 93005; 96361; 96365; 96368; A4216; J1956; J2920; J2930; J7500; J7506

== ENCOUNTER 2018-11-26 08:01 | Outpatient (CLI) | payer BC ==
--- NOTE | 2018-11-26 11:56 | RAD ---
SMALL BOWEL FOLLOW-THROUGH: HISTORY: Generalized abdominal pain. Ulcerative colitis and history of Crohn's disease. TECHNIQUE: A suspension of barium sulfate was given orally. Spot and overhead images obtained. Radiation dosimetry: 0.4 minutes of fluoroscopy and DAP of 269 mGy*m^2. FINDINGS: Images demonstrate passage of the contrast into the colon after approximately 2 hour transit time thr ough the small bowel. No definite evidence of small bowel obstruction or abnormality seen. The terminal ileum is unremarkable. No definite evidence of areas of caliber change or mucosal lesions seen. IMPRESSION: Normal small bowel follow-through. Transcribed Date/Time: 11/26/2018 12:09 PM
== END 2018-11-26 08:02 | disposition home or self-care (01) ==
LOC: RAD 08:01
PROVIDERS: ATTEND Internal Medicine
DX: K51.90 Ulcerative colitis, unspecified, without complications (principal); R10.84 Generalized abdominal pain; K92.2 Gastrointestinal hemorrhage, unspecified; R19.7 Diarrhea, unspecified
CPT/HCPCS: 74250